=== PATIENT | male | born 1970 | race African-American/Black ===

== ENCOUNTER → 2016-12-13 | Outpatient (CLI) | payer OTHER ==
--- NOTE | 2016-12-13 12:01 | RAD ---
Chest, 2 views, 12/13/2016: History: Coronary artery disease Comparison is made to a study from 03/21/2011. Sternal wires are in place. The heart size and pulmonary vascularity are normal. 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 No pulmonary infiltrate is seen. There is no evidence of pleural fluid. Moderate spurring is present in the spine. IMPRESSION: 1. Postsurgical changes as described above. 2. No acute cardiopulmonary abnormality is detected.
== END | disposition home or self-care (01) ==
LOC: RAD 10:17
PROVIDERS: ATTEND Neuromusculoskeletal Medicine, Sports Medicine
DX: I25.10 Atherosclerotic heart disease of native coronary artery without angina pectoris (principal)
CPT/HCPCS: 71020